=== PATIENT | male | born 1945 | race Caucasian/White ===

== ENCOUNTER → 2019-05-23 15:21 | Outpatient (CLI) | payer OTHER, SELFPAY ==
--- NOTE | ~2019-05-23 | XR_ITS ---
EXAMINATION: XR chest 2V EXAM DATE: 05/23/2019 15:30 INDICATION: Right lower posterior chest pain. TECHNIQUE: Frontal and lateral projections of the chest obtained and reviewed. Comparison is made to prior examination from 10/07/2013. FINDINGS: Bulging posterior cardiac contour, the left atrium. No confluent consolidation, pneumothor ax or pleural effusion suspected. Patient has diffuse idiopathic skeletal hyperostosis (DISH). There are cholecystectomy clips. IMPRESSION: Cardiomegaly. Reviewed, dictated and finalized at location B. AIR LAND OFFICER IMPRESSION: Cardiomegaly.
== END ==
PROVIDERS: Visit Provider Internal Medicine Gastroenterology
DX: R07.9 Chest pain, unspecified (principal); I51.7 Cardiomegaly
CPT/HCPCS: 71046

== ENCOUNTER 2020-04-10 14:08 | Outpatient (CLI) | payer MEDICARE, OTHER, SELFPAY ==
--- NOTE | ~2020-04-10 | MR_ITS ---
EXAMINATION: MR brain/brain stem wo/w con DATE: 04/10/2020 15:27 INDICATION: Headache. TECHNIQUE: Magnetic resonance imaging (MRI) of the brain and brainstem was performed without and with 19 mL MultiHance intravenous contrast. Sequences included sagittal and axial T1-weighted FSE, axial diffusion-weighted FS EPI, axial T2*-weighted GRE, axial T2-weighted FLAIR Propeller, and axial T2-we ighted Propeller. Postcontrast sequences included axial and coronal T1-weighted FSE. Apparent diffusi on coefficient (ADC) maps were created. COMPARISON: None. FINDINGS: There are scattered areas of nonspecific increased T2-weighted signal intensity in the cere bral white matter, which is within normal limits for the patient's age. There is no intracranial hemo rrhage, acute infarction, or abnormal intracranial mass lesion. The ventricles are normal in size. Th ere is mild mucosal thickening in the paranasal sinuses. There are likely changes of ocular lens repl acement surgeries. The mastoid air cells are normal. IMPRESSION: 1. Normal aging brain. Reviewed, dictated and finalized at location A. LOPMENTAL ELECTRONICS ASSEMBLER IMPRESSION: 1. Normal aging brain.
[2020-04-10 15:04] LABS: Estimated Glomerular Filt Rate > 60
== END 2020-04-10 14:09 | disposition home or self-care (01) ==
PROVIDERS: PCP Internal Medicine; Visit Provider Clinical Nurse Specialist
DX: R51.9 Headache, unspecified (principal)
CPT/HCPCS: 70553; A9577

== ENCOUNTER 2020-06-27 09:16 | Outpatient (CLI) | payer MEDICARE, SELFPAY ==
--- NOTE | ~2020-06-27 | US_ITS ---
EXAMINATION: US retroperitoneal duplex ltd DATE: 06/27/2020 10:02 INDICATION: hypertension TECHNIQUE: Multiple grayscale, color Doppler, and pulsed Doppler images of the kidneys and renal cedric lexus were obtained. COMPARISON: None. FINDINGS: There is normal renal contour and echogenicity bilaterally. The right kidney measures 10.9 x 5.0 x 5. 5 cm and the left 11.3 x 4.9 x 5.7 cm. There are no focal renal lesions identified. There is no hyd ronephrosis. The aorta peak systolic velocity is 140 cm/s. The right renal artery peak systolic ve locity is 73 cm/s in the proximal segment, 60 cm/s in the mid segment, and 75 cm/s in the distal segm ent. The left renal artery peak systolic velocity is 104 cm/s in the proximal segment, 78 cm/s in the mid segment, and 84 cm/s in the distal segment. IMPRESSION: 1. No Doppler evidence of renal artery stenosis. Reviewed, dictated and finalized at location A.
== END 2020-06-27 09:17 | disposition home or self-care (01) ==
PROVIDERS: PCP Internal Medicine; Visit Provider Internal Medicine
DX: I10 Essential (primary) hypertension (principal)
CPT/HCPCS: 93976

== ENCOUNTER 2020-07-12 09:42 | Outpatient (CLI) | payer MEDICARE, SELFPAY ==
--- NOTE | 2020-07-12 10:01 | ECHO_ITS ---
Patient Info Name: Francisco Rashid Age: 75 years : 1945 Gender: Male Ht: 69 in Wt: 220 lbs BSA: 2.24 m2 HR: 58 bpm BP: 179 / 97 mmHg Heart Rhythm: Sinus Rhythm Exam Date: 07/12/2020 10:20 AM Exam Location: [facility] Patient Status: Outpatient Admit Date: 07/12/2020 Staff Ordering Physician: Elan Harvey DO Claims Consultant: Anny Chris RDCS Attending Provider: Elan Harvey DO Exam Type: CA echo doppler color flow Study Info Indications I10 - Essential (primary) hypertension Complete two-dimensional, color flow and Doppler transthoracic echocardiogram is performed. Summary 1. Complete two-dimensional, color flow and Doppler transthoracic echocardiogram is performed. 2. Left ventricular chamber dimension is normal. 3. Left ventricular systolic function is normal, estimated at 60-65%. 4. The left ventricular diastolic function is normal. 5. E/e' 11 is mildly elevated. 6. Left atrial chamber dimension is mildly enlarged. 7. Right atrial chamber dimension is mildly enlarged. 8. Mild pulmonary hypertension, estimated pulmonary arterial systolic pressure is 44 mmHg. Left Ventricle E/e' 11 is mildly elevated. Left ventricular chamber dimension is normal. Left ventricular systolic function is normal, estimated at 60-65%. The left ventricular diastolic function is normal. Right Ventricle Right ventricular chamber dimension is normal. Right ventricular systolic function is normal. Left Atria Left atrial chamber dimension is mildly enlarged. Right Atria Right atrial chamber dimension is mildly enlarged. Aortic Valve The aortic valve is trileaflet. There is no aortic valve stenosis. There is no aortic valve regurgitation. Pulmonic Valve There is no pulmonic regurgitation. Mitral Valve There is no mitral valve stenosis. There is no mitral valve regurgitation. Tricuspid Valve There is no tricuspid valve regurgitation. Mild pulmonary hypertension, estimated pulmonary arterial systolic pressure is 44 mmHg. Pericardium/Pleural There is no pericardial effusion. Inferior Vena Cava Normal inferior vena cava with >50% collapse upon inspiration consistent with normal right atrial pressure, 5 mmHg. Aorta The aortic root size at the sinus of Valsalva is normal. Left Ventricular Outflow Tract Name Value Normal LVOT 2D LVOT Diameter 1.9 cm LVOT Doppler LVOT Peak Gradient 6 mmHg LVOT Mean Gradient 3 mmHg LVOT VTI 27 cm LVOT VTI/AV VTI Ratio 0.6 LVOT Stroke Volume 79 ml LVOT CO 3.8 l/min LVOT CI 1.7 l/min/m2 Pulmonic Valve Name Value Normal RVOT Doppler RVOT Peak Gradient 2 mmHg
== END 2020-07-12 09:43 | disposition home or self-care (01) ==
PROVIDERS: PCP Internal Medicine; Visit Provider Internal Medicine
DX: I10 Essential (primary) hypertension (principal); R94.31 Abnormal electrocardiogram [ECG] [EKG]
CPT/HCPCS: 93306

== ENCOUNTER → 2021-01-15 12:19 | Outpatient (CLI) | payer MEDICARE, SELFPAY ==
--- NOTE | ~2021-01-15 | US_ITS ---
US renal BI 01/15/2021 12:35 Procedure: Realtime transabdominal ultrasound of the kidneys and bladder. Indication: Arterial insufficiency. Hypertension. Comparison: 06/27/2020 Findings: Renal echotexture is normal bilaterally without hydronephrosis, contour deforming mass or r enal calculus. There are bilateral renal cysts measuring up to 1.5 cm on the right and 1 cm on the le ft. The right kidney measures 10.8 cm and left kidney measures 10.3 cm. Bladder within normal limits . Impression: 1: Bilateral renal cysts. Reviewed, dictated and finalized at location B. Impression: 1: Bilateral renal cysts.
== END ==
PROVIDERS: PCP Internal Medicine; Visit Provider Urology
DX: N52.01 Erectile dysfunction due to arterial insufficiency (principal); N28.1 Cyst of kidney, acquired
CPT/HCPCS: 76775

== ENCOUNTER 2021-02-20 01:17 | Emergency (ER) | payer MEDICARE, SELFPAY ==
[2021-02-20] VITALS (25 sets, daily range): BP systolic 137–157; BP diastolic 60–70; PULSE 43–77; RESP 15–20; TEMP 37.1; O2SAT 90–96
--- NOTE | ~2021-02-20 | CT_ITS ---
EXAMINATION: CT chest abdomen pelvis w con DATE: 02/20/2021 03:01 INDICATION: Chest pain and abdominal pain. TECHNIQUE: Computed tomography (CT) of the chest, abdomen, and pelvis was performed with 100 mL Omnip aque-350 intravenous contrast. Automated exposure control and iterative reconstruction technique were employed. The dose-length product was 1861.29 mGy-cm. COMPARISON: CT dated 01/31/2019 FINDINGS: CHEST CT: Mild atelectasis at the dependent and basilar lower lobes. No pneumonia, pulmonary edema, pleural eff usion or pneumothorax. Cardiomegaly. Atherosclerotic coronary artery calcification is. Aortic valve c alcification. Thoracic aorta is normal in caliber with no dissection. Calcified mediastinal lymph nod es consistent with old granulomatous disease. No pathologically enlarged thoracic lymphadenopathy. Se sammi left glenohumeral osteoarthritis with a few large loose osteochondral bodies. Heterotopic ossifi cation along the distal left supraspinatus tendon and left coracoclavicular ligament which are likely sequela of prior trauma. There are bridging osteophytes at multiple levels in the thoracic spine, co nsistent with diffuse idiopathic skeletal hyperostosis (DISH). ABDOMEN/PELVIS CT: Multiple splenic calcifications in the liver and spleen consistent with old granulomatous disease. Ch olecystectomy clips the gallbladder fossa. Pancreas, bilateral adrenal glands and left kidney are nor mal. 1.6 cm right renal cyst. There is moderate colonic diverticulosis with a sigmoid predominance. There is no adjacent inflammatory change to suggest diverticulitis. Small bowel and appendix are norm al. Bladder is normal. Prostatomegaly measuring 5.0 x 3.2 cm. No free intraperitoneal gas or fluid. N o pathologically enlarged abdominal or pelvic lymphadenopathy. There is calcified atherosclerosis of the aorta and many of the other arteries. This includes mild stenosis at the origin of the superior m esenteric artery and a severe stenosis at the right internal iliac artery. Moderate to severe lower l umbar facet osteoarthritis. IMPRESSION: 1. No acute intrathoracic, abdominal or pelvic process. 2. Cardiomegaly. 3. Diverticulosis. Reviewed, dictated and finalized at location A. ISES TECHNICIAN
--- NOTE | ~2021-02-20 | XR_ITS ---
EXAMINATION: XR chest 2V EXAM DATE: 02/20/2021 02:49 INDICATION: Chest pain radiating to neck. TECHNIQUE: Frontal and lateral projections of the chest obtained and reviewed. Comparison is made to prior examination from 05/23/2019. FINDINGS: There is cardiomegaly and pulmonary vascular congestion. No confluent consolidation, pneum othorax or pleural effusion suspected. There are cholecystectomy clips. There is moderate left should er primary osteoarthritis. Left shoulder rotator cuff calcific tendinosis. IMPRESSION: Cardiomegaly, pulmonary vascular congestion. Reviewed, dictated and finalized at location A. SITION MANAGER
--- NOTE | ~2021-02-20 | XR_ITS ---
EXAMINATION: XR abdomen/kub 1V EXAM DATE: 02/20/2021 02:49 INDICATION: Abdominal pain and bloating. TECHNIQUE: Frontal projection of the upper abdomen, frontal projection lower abdomen/pelvis for inter pretation. There is no prior study for comparison. FINDINGS: There is expected amount of colonic stool and gas. No small bowel dilation, nonobstructiv e bowel gas pattern. Calcifications in the pelvis are believed to be phleboliths. There is no orga nomegaly suspected. There are mild bony degenerative changes. There are cholecystectomy clips. IMPRESSION: Unremarkable abdomen x-ray exam. Reviewed, dictated and finalized at location A. T EDUCATION MANAGER
--- NOTE | 2021-02-20 01:21 | ECG_ITS ---
Measurements Intervals Bagley Rate: 51 P: 67 NV: 200 QRS: 20 QRSD: 101 T: 46 QT: 424 QTc: 392 Interpretive Statements SINUS BRADYCARDIA LOW QRS VOLTAGE IN PRECORDIAL LEADS INCOMPLETE RIGHT BUNDLE BRANCH BLOCK BORDERLINE R WAVE PROGRESSION, ANTERIOR LEADS BASELINE WANDER- III, AVR, AVF BORDERLINE ECG Electronically Signed On 02-20-2021 6:44:48 DOCUMENT PROCESSING SPECIALIST by Franco Norman D.O.
--- NOTE | 2021-02-20 01:21 | ED.CHESTPAIN ---
HPI - Chest Pain General Chief Complaint: Chest Pain Stated Complaint: CP Time Seen by Provider: 02/20/21 01:21 Source: patient and family Mode of arrival: ambulatory Limitations: no limitations History of Present Illness HPI narrative: Patient is a 75-year-old male with a history of hypertension, hyperlipidemia presenting for evaluation of upper abdominal pain, lower chest pain. Onset of pain was approximately 9:30 PM yesterday evening, patient reports aching sensation in his upper abdomen which travels to his upper chest. He denies radiation of the pain to his neck, jaw, shoulder, back or flanks. No ripping or tearing sensation to the pain. No associated shortness. Patient does report some abdominal distention and bloating as well as nausea, denies any episodes of emesis. Patient reports history of hernia repair with mesh at [facility] many years ago, denies other intra-abdominal surgeries. He denies any cough or shortness of breath. No pleuritic chest pain. Reports diarrhea this week. Denies history of constipation. Related Data Home Medications Medication Instructions Recorded Confirmed multivitamin 1 tablet PO DAILY 01/24/20 01/15/21 omega-3 fatty acids 1,000 mg 1,400 mg PO DAILY cap 01/24/20 01/15/21 capsule vit C 250 mg-vit E 90 mg-zinc 40 1 tablet PO DAILY cap 01/24/20 01/15/21 mg-copper 1 [id number] capsule sildenafil 50 mg tablet 50 mg PO DAILY PRN 04/03/20 01/15/21 Allergies Allergy/AdvReac Type Severity Reaction Status Date / Time ciprofloxacin Allergy Unknown Flu like Verified 02/20/21 01:27 symptoms metronidazole Allergy Unknown Flu like Verified 02/20/21 01:27 symptoms nitroglycerin AdvReac Intermediate Bradycardia Verified 02/20/21 01:27 Review of Systems Review of Systems: CONSTITUTIONAL: Denies fever, chills, or sweats. EYES: Denies visual changes, redness, or discharge. ENT: Denies rhinorrhea, congestion, sore throat, or otalgia. CARDIOVASCULAR: Reports lower chest pain without palpitations or edema RESPIRATORY: Denies cough or dyspnea. GASTROINTESTINAL: Reports abdominal pain, nausea without vomiting, reports diarrhea GENITOURINARY: Denies dysuria or hematuria. SKIN: Denies rash or itching. MUSCULOSKELETAL: Denies back pain, joint pain, or myalgia. NEUROLOGIC: Denies headache, numbness, or weakness. [facility] Past Medical History Medical History Bradycardia Dainelle endophthalmitis Cholecystectomy planned Elevated C-reactive protein (CRP) Heart murmur History of measles, mumps, or rubella Hyperlipidemia Hypertension Kidney disease Surgical History Surgical History H/O hernia repair Family History Family History Father Family history of transient ischemic attacks Mother Family history of transient ischemic attacks Social History Social History Smoking status: Never smoker Second hand tobacco smoke exposure: No Alcohol intake: current Exam Narrative: GENERAL: Awake, alert, conversant, uncomfortable appearing HEAD: Normocephalic, atraumatic. EYES: PERRLA and EOMI. ENT: Nares clear, no rhinorrhea or epistaxis. Mucous membranes moist. NECK: Supple. CHEST: No respiratory distress, breathing even and non labored, no chest wall tenderness HEART: Bradycardic rate, sinus rhythm ABDOMEN: Distention with tenderness throughout, guarding in the epigastrium, right upper quadrant, no rebound, nonrigid EXTREMITIES: Normal range of motion. No edema. SKIN: Warm, dry, no rash. NEURO:No focal deficits. Alert and oriented x3 Course Vital Signs Vital signs: Vital Signs Temperature 37.1 C 02/20/21 01:23 Pulse Rate 56 L 02/20/21 01:23 Respiratory Rate 16 02/20/21 01:23 Blood Pressure 148/70 H 02/20/21 01:23 Pulse Oximetry 96
[2021-02-20] MEDS: ASPIRIN 81 MG CHEWABLE TABLET 324 MG PO (01:34)
[2021-02-20 01:41] LABS: Basophils Percent Auto 0.2 % (0.2-1.2); Eosinophils Absolute Auto 0.2 K/mm3 (0-0.3); Hematocrit 43.2 % (42.0-52.0); Hemoglobin 15.7 g/dL (14.0-18.0); Immature Granulocyte Absolute 0.03 K/mm3 (0.00-0.031); Immature Granulocyte Percent A 0.3 % (0-0.5); Lymphocytes Percent Auto 40.3 % (18.3-44.2); Mean Corpuscular HGB Conc 36.3 g/dl (32-36); Mean Corpuscular Hemoglobin 35.5 pg (26-34); Mean Corpuscular Volume 97.7 fl (80-100); Mean Platelet Volume 8.6 fl (7.4-10.4); Monocytes Absolute Auto 0.6 K/mm3 (0.1-0.6); Neutrophils Absolute Auto 4.4 K/mm3 (1.3-6.7); Neutrophils Percent Auto 50.2 % (45.5-73.1); Platelet Count Result 160 k/mm3 (150-375); Red Blood Count 4.42 M/mm3 (4.6-6.20); Red Cell Distribution Width 12.2 % (11.5-14.5); White Blood Count 8.7 K/mm3 (4.5-10.0)
[2021-02-20 01:53] LABS: Alanine Aminotransferase 40 U/L (4-50); Albumin Level 4.2 g/dL (3.5-5.1); Alkaline Phosphatase 109 U/L (38-126); Anion Gap 7 mmol/L (8-16); Aspartate Amino Transferase 38 U/L (17-59); Bilirubin,Total 0.4 mg/dL (0.2-1.3); Blood Urea Nitrogen 16 mg/dL (9-20); Calcium 9.9 mg/dL (8.4-10.2); Carbon Dioxide 30 mmol/L (22-30); Chloride 101 mmol/L (98-107); Estimated CRCL calculation 95 ml/min; Estimated Glomerular Filt Rate > 60; Glucose 110 mg/dL (65-110); Lipase 115 U/L (23-300); Potassium 3.6 mmol/L (3.4-5.0); Sodium 138 mmol/L (137-145)
[2021-02-20 02:00] LABS: INR 0.9; Prothrombin Time 12.1 Seconds (11.1-14.7)
[2021-02-20 02:01] LABS: Partial Thromboplastin Time 27.6 SECONDS (22.3-36.8)
[2021-02-20 02:04] LABS: Troponin I < 0.012 ng/mL (0.000-0.034)
[2021-02-20] MEDS: SODIUM CHLORIDE 0.9% IV 1,000 ML 999 ML IV CONT (02:23)
[2021-02-20] MEDS: ONDANSETRON INJ 4 MG/2 ML VIAL IV PUSH (02:24)
[2021-02-20] MEDS: MORPHINE SULFATE (*CRX) 4 MG/ML INJ IV PUSH (02:26)
[2021-02-20] MEDS: DICYCLOMINE HCL INJ 20 MG/2 ML VIAL IM (02:27)
[2021-02-20 05:41] LABS: Troponin I < 0.012 ng/mL (0.000-0.034)
== END 2021-02-20 06:15 | disposition home or self-care (01) ==
PROVIDERS: Emergency Provider Emergency Medicine; PCP Internal Medicine
DX: R07.89 Other chest pain (principal); R10.10 Upper abdominal pain, unspecified; E78.5 Hyperlipidemia, unspecified; I10 Essential (primary) hypertension; N28.9 Disorder of kidney and ureter, unspecified; R00.1 Bradycardia, unspecified; R94.31 Abnormal electrocardiogram [ECG] [EKG]; I45.10 Unspecified right bundle-branch block; I51.7 Cardiomegaly; K57.90 Diverticulosis of intestine, part unspecified, without perforation or abscess without bleeding
CPT/HCPCS: 36415; 71046; 71260; 74018; 74177; 80053; 83690; 84484; 85025; 85610; 85730; 93005; 96361; 96372; 96374; 96375; 99284; A9270; J0131; J0500; J2270; J2405; J7030; Q9967

== ENCOUNTER → 2021-07-11 10:53 | Outpatient (CLI) | payer MEDICARE, SELFPAY ==
--- NOTE | ~2021-07-11 | CT_ITS ---
EXAMINATION: CT abdomen pelvis wo/w con DATE: 07/11/2021 11:55 INDICATION: Microscopic hematuria TECHNIQUE: Computed tomography (CT) of the abdomen and pelvis was performed without intravenous contr ast. CT of the abdomen and pelvis was then performed with a total of 130 mL Omnipaque 350 intravenous contrast using a double-bolus technique for simultaneous opacification of the renal parenchyma and r enal collecting system. The dose-length product (DLP) was 2163.95 mGy-cm. Automated exposure control and iterative reconstruction technique were employed. COMPARISON: 02/20/2021 FINDINGS: Minimal dependent atelectasis is present in the lung bases. The heart size is normal. There is a small sliding hiatal hernia. Prior Punctate calcifications in otherwise normal appearing liver and spleen likely represent healed granulomatous disease. The gallbladder is surgically absent. The p ancreas and adrenal glands are unremarkable. Cysts of the right kidney measure up to 2 cm. No stones are identified in the kidneys, ureters, or bladder. There is no hydronephrosis or hydroureter. No wes picious renal or urothelial lesion is identified. No pathologically enlarged abdominal or pelvic lymp h nodes are identified. There is calcified atherosclerosis of the aorta and many of the other arterie s. There is no free intraperitoneal gas or evidence of bowel obstruction. Colonic diverticulosis is p resent without evidence of diverticulitis. The appendix is normal. There is mild lumbar spondylosis. IMPRESSION: 1. No CT correlate for the patient's symptoms. Reviewed, dictated and finalized at location A.
--- NOTE | ~2021-07-11 | XR_ITS ---
EXAMINATION: XR abdomen/kub 1V INDICATION: Microscopic hematuria TECHNIQUE: Supine views of the abdomen were obtained on 2 radiographs. COMPARISON: 02/20/2021 FINDINGS: Cholecystectomy clips are noted. No urolithiasis is identified. Punctate left upper quadran t calcifications are consistent with granulomatous disease of the spleen. IMPRESSION: 1. No radiographic correlate for the patient's symptoms. Reviewed, dictated and finalized at location A.
[2021-07-11 11:09] LABS: Estimated Glomerular Filt Rate > 60
== END ==
PROVIDERS: PCP Internal Medicine; Visit Provider Nurse Practitioner Adult Health
DX: R31.29 Other microscopic hematuria (principal)
CPT/HCPCS: 74018; 74178; Q9967

== ENCOUNTER 2021-09-12 01:07 | Day surgery (SDC) | payer MEDICARE, SELFPAY ==
[2021-08-21 13:18] VITALS: BMI 32.5
--- NOTE | 2021-09-11 13:11 | PM.HPGS ---
History of Present Illness History of Present Illness Consent: Risks, benefits, and alternatives have been discussed and questions answered. Patient agrees to proceed with procedure. Chief complaint: positive cologuard Narrative: Francisco Rashid Jr. is a 76 year old male referred for colon cancer screening. He recently performed Cologuard test was positive. Review of Systems Review of Systems: All systems reviewed & are unremarkable except as noted in HPI and below PMFSH Past Medical History Medical History Bradycardia Danielle endophthalmitis Cholecystectomy planned Elevated C-reactive protein (CRP) Heart murmur History of measles, mumps, or rubella Hyperlipidemia Hypertension Kidney disease Surgical History Surgical History H/O hernia repair Family History Family History Father Family history of transient ischemic attacks Mother Family history of transient ischemic attacks Social History Social History Smoking status: Never smoker Second hand tobacco smoke exposure: No Alcohol intake: current Drinks per week: 21 Substance use type: does not use Living arrangements: with family Spiritual care concerns: No Meds Home Medications and Allergies Home Medications Medication Instructions Recorded Confirmed Type multivitamin 1 tablet PO DAILY 01/24/20 09/04/21 History omega-3 fatty acids 1,000 mg 1,400 mg PO DAILY 01/24/20 09/04/21 History capsule (Fish Oil Concentrate) vit C 250 mg-vit E 90 mg-zinc 40 1 tablet PO DAILY 01/24/20 09/04/21 History mg-copper 1 [id number] capsule (PreserVision AREDS-2) sildenafil 50 mg tablet 50 mg PO DAILY PRN Erectile 04/03/20 09/04/21 History Dysfunction losartan 100 1 tablet PO DAILY #90 tabs 06/13/21 09/04/21 Rx mg-hydrochlorothiazide 25 mg tablet amlodipine 10 mg tablet 10 mg PO DAILY #90 tabs 08/19/21 09/04/21 Rx cyclobenzaprine 10 mg tablet 10 mg PO TID PRN muscle spasm #20 09/04/21 09/04/21 Rx tabs Allergies Allergy/AdvReac Type Severity Reaction Status Date / Time ciprofloxacin Allergy Unknown Flu like Verified 09/04/21 11:15 symptoms metronidazole Allergy Unknown Flu like Verified 09/04/21 11:15 symptoms nitroglycerin AdvReac Intermediate Bradycardia Verified 09/04/21 11:15 Exam Resp: Auscultation: clear to auscultation bilaterally Cardio: Rate: regular rate Rhythm: regular rhythm GI: GI Palp: Yes Soft to palpation and No Tenderness to palpation present (GI) Assessment and Plan Assessment and plan (1) Screening for colon cancer: Code(s): Z12.11 - Encounter for screening for malignant neoplasm of colon Status: Acute Assessment and Plan: Colonoscopy with possible biopsy or polypectomy or cautery or injection of substances.
--- NOTE | 2021-09-11 15:31 | P.PNAN_ITS ---
Anes - Initial Pre Proc Eval Procedure: Operation Date: 09/12/21 10:15 Proposed Procedures p Screening Colonoscopy - Adrian Sheldon MD Date/Time: 09/11/21 15:31 Surgeon: Adrian Sheldon MD Pre Op Diagnosis: positive cologuard Patient Data Age: 76 Gender: M Height: 1.75 m Weight: 100 kg Allergies Allergy/AdvReac Type Severity Reaction Status Date / Time ciprofloxacin Allergy Unknown Flu like Verified 09/04/21 11:15 symptoms metronidazole Allergy Unknown Flu like Verified 09/04/21 11:15 symptoms nitroglycerin AdvReac Intermediate Bradycardia Verified 09/04/21 11:15 Home Medications Medication Instructions Recorded Confirmed Type multivitamin 1 tablet PO DAILY 01/24/20 09/04/21 History omega-3 fatty acids 1,000 mg 1,400 mg PO DAILY 01/24/20 09/04/21 History capsule (Fish Oil Concentrate) vit C 250 mg-vit E 90 mg-zinc 40 1 tablet PO DAILY 01/24/20 09/04/21 History mg-copper 1 [id number] capsule (PreserVision AREDS-2) sildenafil 50 mg tablet 50 mg PO DAILY PRN Erectile 04/03/20 09/04/21 History Dysfunction losartan 100 1 tablet PO DAILY #90 tabs 06/13/21 09/04/21 Rx mg-hydrochlorothiazide 25 mg tablet amlodipine 10 mg tablet 10 mg PO DAILY #90 tabs 08/19/21 09/04/21 Rx cyclobenzaprine 10 mg tablet 10 mg PO TID PRN muscle spasm #20 09/04/21 09/04/21 Rx tabs Patient hx anesthesia problems: none Family hx anesthesia problems: none Results Review: All pre-operative results and documents have been reviewed as part of the pre- operative evaluation. [facility] Past Medical History Medical History Bradycardia Danielle endophthalmitis Cholecystectomy planned Elevated C-reactive protein (CRP) Heart murmur History of measles, mumps, or rubella Hyperlipidemia Hypertension Kidney disease Surgical History Surgical History H/O hernia repair Family History Family History Father Family history of transient ischemic attacks Mother Family history of transient ischemic attacks Social History Social History Smoking status: Never smoker Second hand tobacco smoke exposure: No Alcohol intake: current Drinks per week: 21 Substance use type: does not use Living arrangements: with family Spiritual care concerns: No Anes - Eval Final PreProcedure Day of Procedure 09/11/21 15:31 Patient weight: obese Heart: regular rate and rhythm Lungs: clear to auscultation Airway: Mallampati scale class II Neurological: alert and oriented Last oral intake: >/= 8 hours ASA classification: III Emergent: no Anesthetic plan: proceed Anesthesia type and monitoring: general GIVS and standard monitoring Results Review: All pre-operative results and documents have been reviewed as part of the pre- operative evaluation. Informed Consent: The patient's anesthetic plan and its attendant risks and benefits were discussed with the patient/family/POA. Questions were solicited and answers provided to the satisfaction of the patient/family/POA.
[2021-09-12 08:54] VITALS: BMI 33.5
[2021-09-12 08:56] VITALS: BP 157/72; PULSE 62; RESP 20; TEMP 36.4; O2SAT 98
[2021-09-12] MEDS: LACTATED RINGERS 1,000 ML 150 ML IV CONT (09:02)
[2021-09-12 09:50] VITALS: BP 129/78; PULSE 63; RESP 25; O2SAT 97
[2021-09-12 10:00] VITALS: BP 127/71; PULSE 59; RESP 23; O2SAT 97
[2021-09-12 10:10] VITALS: BP 134/75; PULSE 54; RESP 19; O2SAT 99
== END 2021-09-12 10:20 | disposition home or self-care (01) ==
PROVIDERS: PCP Internal Medicine; Visit Provider Internal Medicine Gastroenterology
PROC: 0DJD8ZZ Inspection of Lower Intestinal Tract, Via Natural or Artificial Opening Endoscopic (ICD-10-PCS; CPT 45378; principal; 2021-09-12 10:15)
DX: Z12.11 Encounter for screening for malignant neoplasm of colon (principal); K57.30 Diverticulosis of large intestine without perforation or abscess without bleeding; R19.5 Other fecal abnormalities; I10 Essential (primary) hypertension; E78.5 Hyperlipidemia, unspecified; E66.9 Obesity, unspecified; Z68.33 Body mass index [BMI] 33.0-33.9, adult
CPT/HCPCS: G0121; J2704; J7120

== ENCOUNTER → 2022-04-29 11:32 | Outpatient (CLI) | payer MEDICARE, SELFPAY ==
--- NOTE | ~2022-04-29 | XR_ITS ---
EXAMINATION: XR knee LT 3V DATE: 04/29/2022 11:43 INDICATION: Left knee pain TECHNIQUE: Three views of the left knee were obtained. COMPARISON: None. FINDINGS: Alignment is normal. No fracture or osteochondral lesion. There is mild tricompartmental os teoarthritis characterized by tiny marginal osteophytes. No joint effusion/synovitis. Calcified athe rosclerosis is noted. IMPRESSION: 1. Mild osteoarthritis. Reviewed, dictated and finalized at location L. UP AND LAY OUT INSPECTOR IMPRESSION: 1. Mild osteoarthritis.
== END ==
PROVIDERS: PCP Internal Medicine; Visit Provider Clinical Nurse Specialist
DX: M17.12 Unilateral primary osteoarthritis, left knee (principal)
CPT/HCPCS: 73562

== ENCOUNTER → 2022-06-27 11:17 | Outpatient (CLI) | payer MEDICARE, SELFPAY ==
--- NOTE | ~2022-06-27 | MR_ITS ---
MRI of the left knee Clinical history: Pain Technique: Coronal proton density and proton density-weighted images, sagittal proton-density and T2 fat-sat images, and axial proton-density fat-saturated images were acquired. Findings: Anterior and posterior cruciate ligaments are intact. Medial collateral ligament and the la teral collateral ligament, as are intact. Popliteus tendon is intact. There is probable radial tear at the posterior root of the medial meniscus. No lateral meniscal tear seen. There is moderate chondral thinning towards the medial joint line. There is minimal chondral th inning in the lateral and patellofemoral compartment. Bone marrow signals are unremarkable. Extensor mechanism is intact. Small joint effusion present, with minimal Galeano's cyst. Impression: Radial tear at the posterior root of the medial meniscus. Mild degenerative change, as above. Small joint effusion with minimal Galeano's cyst. Reviewed, dictated and finalized at [facility]. Impression: Radial tear at the posterior root of the medial meniscus. Mild degenerative change, as above. Small joint effusion with minimal Galeano's cyst.
== END ==
PROVIDERS: PCP Internal Medicine; Visit Provider Nurse Practitioner
DX: M25.462 Effusion, left knee (principal); S83.242A Other tear of medial meniscus, current injury, left knee, initial encounter; X58.XXXA Exposure to other specified factors, initial encounter
CPT/HCPCS: 73721

== ENCOUNTER → 2022-08-19 12:11 | Outpatient (CLI) | payer MEDICARE, SELFPAY ==
--- NOTE | ~2022-08-19 | CT_ITS ---
EXAMINATION: CT abdomen pelvis w con DATE: 08/19/2022 12:39 INDICATION: Left lower quadrant abdominal pain. Bloating. TECHNIQUE: Computed tomography (CT) of the abdomen and pelvis was performed with 100 mL Omnipaque 350 intravenous contrast. Automated exposure control and iterative reconstruction technique were employe d. The dose-length product was 1216.27 mGy-cm. COMPARISON: CT abdomen and pelvis 07/11/2021 FINDINGS: The visualized portions of the lung bases demonstrate mild atelectasis. No pleural effusion . The heart size is normal. No pericardial effusion. There are coronary artery calcifications. The li angy demonstrates steatosis in the gallbladder fossa. Calcifications in the liver and spleen are consi stent with old granulomatous disease. There are low-attenuation lesions in the spleen measuring up to 9 mm, likely granulomatous disease. The pancreas and adrenal glands are normal. There are cysts in t he kidneys measuring up to 2.1 cm on the right. There is diverticulosis of the colon without evidence of diverticulitis. There are no dilated loops of bowel. The appendix is normal. There are no patholo gically enlarged lymph nodes. There is no free intraperitoneal fluid. There is calcified atherosclero sis of the aorta and many of the other arteries. There is mild lumbar spondylosis. There are bridging endplate osteophytes at multiple levels in the thoracic spine, consistent with diffuse idiopathic sk eletal hyperostosis (DISH). IMPRESSION: 1. No etiology for the patient's symptoms. Reviewed, dictated and finalized at location A.
[2022-08-19 12:27] LABS: Estimated Glomerular Filt Rate > 60
== END ==
PROVIDERS: PCP Internal Medicine; Visit Provider Nurse Practitioner
DX: R10.32 Left lower quadrant pain (principal)
CPT/HCPCS: 74177; Q9967

== ENCOUNTER 2023-01-22 10:18 | Emergency (ER) | payer MEDICARE, SELFPAY ==
--- NOTE | 2023-01-22 10:21 | ED.URI ---
HPI - URI/Sore Throat General Chief Complaint: Upper Respiratory Infection Stated Complaint: cough,chest rattling Time Seen by Provider: 01/22/23 10:21 Source: patient Mode of arrival: ambulatory Limitations: no limitations History of Present Illness HPI Narrative: Patient is a 77-year-old male who presents 3 days cough and congestion. At home COVID test was negative. Patient reports he is having coughing fits at night. Denies any fever, chills, nausea, vomiting, diarrhea, ear pain, sore throat. Patient has been using Mucinex. Denies history of COPD, asthma, bronchitis, pneumonia. Related Data Home Medications Medication Instructions Recorded Confirmed multivitamin 1 tablet PO DAILY 01/24/20 01/22/23 omega-3 fatty acids 1,000 mg 1,400 mg PO DAILY 01/24/20 01/22/23 capsule (Fish Oil Concentrate) vit C 250 mg-vit E 90 mg-zinc 40 1 tablet PO DAILY 01/24/20 01/22/23 mg-copper 1 [id number] capsule (PreserVision AREDS-2) sildenafil 50 mg tablet 50 mg PO DAILY PRN Erectile 12/10/21 01/22/23 Dysfunction triamcinolone acetonide 0.1 % 1 applic topical DAILY 08/19/22 12/22/22 lotion Allergies Allergy/AdvReac Type Severity Reaction Status Date / Time ciprofloxacin Allergy Unknown Flu like Verified 01/22/23 10:29 symptoms metronidazole Allergy Unknown Flu like Verified 01/22/23 10:29 symptoms nitroglycerin AdvReac Intermediate Bradycardia Verified 01/22/23 10:29 Review of Systems Review of Systems: All systems reviewed & are unremarkable except as noted in HPI and below Constitutional: Constitutional: Denies body ache(s), Denies chills, Denies fatigue, Denies fever(s), Denies headache(s), Denies malaise and Denies weakness Eyes: Eyes: Denies blurry vision, Denies itchy eyes and Denies loss of vision ENT: Denies otalgia, Denies headache(s), Reports nasal congestion, Denies sinus pain and Denies sore throat Cardiovascular: Cardiovascular: Denies chest pain, Denies irregular heart rhythm and Denies dyspnea Respiratory: Respiratory: Reports cough and Denies dyspnea Gastrointestinal: Gastrointestinal: Denies abdominal pain, Denies diarrhea, Denies nausea and Denies vomiting Musculoskeletal: Musculoskeletal: Denies back pain, Denies myalgias and Denies arthralgias Integumentary/Breasts: Skin/Breast: Denies pruritus and Denies rash Neurologic: Denies headache(s), Denies loss of vision and Denies weakness Psychiatric: Psychiatric: Reports no additional psychiatric complaints Endocrine: Endocrine: Denies fatigue Allergic/Immunologic: Allergic/Immunologic: Denies itchy eyes PMFSH Past Medical History Medical History Bradycardia Danielle endophthalmitis Cholecystectomy planned Elevated C-reactive protein (CRP) Heart murmur History of measles, mumps, or rubella Hyperlipidemia Hypertension Surgical History Surgical History H/O hernia repair History of cholecystectomy Family History Family History Father Family history of transient ischemic attacks Heart disease Cerebrovascular accident Mother Family history of transient ischemic attacks Hypertension Cerebrovascular accident Son Celiac disease Grandparent Cancer Social History Social History Smoking status: Never smoker Second hand tobacco smoke exposure: No Alcohol intake: current Drinks per week: 21 Substance use type: does not use Lack of Transportation: No Lack of Food: Never True Current Housing: I Have Housing Concerned About Future Housing: No Difficulty Paying Gas/Electric Bills: No Difficulty Paying for Meds: No Currently Unemployed: No Education: Master's Degree or Higher Difficulty w/ Childcare or Family Care: No Living arrangements: with family Occupation/
[2023-01-22 10:37] VITALS: BP 164/83; PULSE 68; RESP 16; TEMP 36.9; O2SAT 97
== END 2023-01-22 11:25 | disposition home or self-care (01) ==
PROVIDERS: Emergency Provider Nurse Practitioner Family; PCP Internal Medicine
DX: J06.9 Acute upper respiratory infection, unspecified (principal); R01.1 Cardiac murmur, unspecified; E78.5 Hyperlipidemia, unspecified; I10 Essential (primary) hypertension
CPT/HCPCS: 87804; 99213; G0463

== ENCOUNTER → 2023-01-23 10:55 | Outpatient (CLI) | payer MEDICARE, SELFPAY ==
--- NOTE | ~2023-01-23 | XR_ITS ---
XR chest 2V 01/23/2023 11:06 Indication: Cough Procedure: 2 view chest Comparison: 02/20/2021 Findings: Cardiomegaly. No focal air space disease, pulmonary edema, pleural effusion or suspected pn eumothorax. No acute osseous abnormality. Impression: 1: No acute cardiopulmonary disease. Reviewed, dictated and finalized at location B. Impression: 1: No acute cardiopulmonary disease.
== END ==
PROVIDERS: PCP Nurse Practitioner; Visit Provider Nurse Practitioner
DX: R05.9 Cough, unspecified (principal)
CPT/HCPCS: 71046

== ENCOUNTER 2023-06-08 12:39 | Emergency (ER) | payer MEDICARE, OTHER, SELFPAY ==
--- NOTE | 2023-06-08 12:46 | ED.URI ---
HPI - URI/Sore Throat General Chief Complaint: Upper Respiratory Infection Stated Complaint: Cough,Fatigue,Trouble Breathing Time Seen by Provider: 06/08/23 12:44 Source: patient Mode of arrival: ambulatory Limitations: no limitations History of Present Illness HPI Narrative: Francisco is a 78-year-old male patient presenting to the clinic today with complaints of cough, fatigue, difficulty breathing times 2-3 days. Reports he just got back from [place]. Denies any fever, chills, body aches. Cough is nonproductive and keeping him up at night. Took at home COVID test on Thursday and it was negative at that time. Symptoms started Thursday night Related Data Home Medications Medication Instructions Recorded Confirmed multivitamin 1 tablet PO DAILY 01/24/20 06/08/23 omega-3 fatty acids 1,000 mg 1,400 mg PO DAILY 01/24/20 06/08/23 capsule (Fish Oil Concentrate) sildenafil 50 mg tablet 50 mg PO DAILY PRN Erectile 12/10/21 06/08/23 Dysfunction Allergies Allergy/AdvReac Type Severity Reaction Status Date / Time ciprofloxacin Allergy Unknown Flu like Verified 01/22/23 10:29 symptoms metronidazole Allergy Unknown Flu like Verified 01/22/23 10:29 symptoms nitroglycerin AdvReac Intermediate Bradycardia Verified 01/22/23 10:29 Review of Systems Review of Systems: Pertinent positives per HPI. Patient denies any fever, chills, rash, headache, visual changes, dizziness, runny nose, sore throat,chest pain, palpitations, nausea, vomiting, diarrhea, constipation, abdominal pain, or any urinary issues. PMFSH Past Medical History Medical History Bradycardia Danielle endophthalmitis Cholecystectomy planned Elevated C-reactive protein (CRP) Heart murmur History of measles, mumps, or rubella Hyperlipidemia Hypertension Surgical History Surgical History H/O hernia repair History of cholecystectomy Family History Family History Father Family history of transient ischemic attacks Heart disease Cerebrovascular accident Mother Family history of transient ischemic attacks Hypertension Cerebrovascular accident Son Celiac disease Grandparent Cancer Social History Social History (Reviewed 03/11/24 @ 12:47 by SONDRA Quinteros Smoking status: Never smoker Second hand tobacco smoke exposure: No Alcohol intake: current Drinks per week: 21 Substance use type: does not use Lack of Transportation: No Lack of Food: Never True Current Housing: I Have Housing Concerned About Future Housing: No Difficulty Paying Gas/Electric Bills: No Difficulty Paying for Meds: No Currently Unemployed: No Education: Master's Degree or Higher Difficulty w/ Childcare or Family Care: No Living arrangements: with family Occupation/Education: retired Spiritual care concerns: No Comments At the time of my signature, I reviewed and agree with the nursing past medical, surgical, social, and family history. There is no relevant family history pertinent to the patient complaint. Exam Narrative: General: Well-developed, well nourished, in no apparent distress Head: Normocephalic, atraumatic Eyes: Pupils equally round and reactive to light bilaterally, EOM intact, sclera and conjunctive clear, no discharge, lids normal Ears: TMs intact and clear, ear canals clear, no drainage, grossly hearing normal. Nose: Nares patent, clear discharge, no inflammation, no sinus tenderness. Mouth: Oropharynx without lesions or masses, good dentition, MMM. Neck: Supple, trachea midline, no enlargement of anterior or posterior cervical nodes, no thyroid masses or goiter palpable. Cardio: Regular rate and rhythm, s1 and s2 normal, no murmur appreciated. Resp: Clear to auscultation bilaterally anteriorly and posteriorly, no rhonc
[2023-06-08 12:47] VITALS: BP 172/74; PULSE 61; RESP 16; TEMP 36.7; O2SAT 97
== END 2023-06-08 13:38 | disposition home or self-care (01) ==
PROVIDERS: Emergency Provider Nurse Practitioner Family; PCP Nurse Practitioner
DX: J06.9 Acute upper respiratory infection, unspecified (principal); Z20.822 Contact with and (suspected) exposure to COVID-19; R01.1 Cardiac murmur, unspecified; E78.5 Hyperlipidemia, unspecified; I10 Essential (primary) hypertension
CPT/HCPCS: 87426; 99213; G0463

== ENCOUNTER 2023-10-19 13:07 | Outpatient (CLI) | payer MEDICARE, OTHER, SELFPAY ==
--- NOTE | ~2023-10-19 | XR_ITS ---
XR abdomen/kub 1V 10/19/2023 13:27 INDICATION: Bloating with gas TECHNIQUE: KUB COMPARISON: 07/11/2021 FINDINGS: Bowel gas pattern is normal. There is no evidence of free air, mass, organomegaly, ascites or obstruction. No abnormal calculi are seen. There are pelvic phleboliths. The bones appear intact . Moderate lumbar spondylosis. IMPRESSION: 1: No acute abdominal abnormality identified. Reviewed, dictated and finalized at location B.
== END 2023-10-19 13:08 ==
PROVIDERS: PCP Internal Medicine; Visit Provider Nurse Practitioner
DX: R14.0 Abdominal distension (gaseous) (principal); K59.00 Constipation, unspecified
CPT/HCPCS: 74018

== ENCOUNTER 2023-10-28 14:30 | Outpatient (CLI) | payer MEDICARE, OTHER, SELFPAY ==
--- NOTE | ~2023-10-28 | CT_ITS ---
EXAMINATION: CT abdomen pelvis w con DATE: 10/28/2023 14:58 INDICATION: Gas, bloating and right lower abdominal discomfort TECHNIQUE: Computed tomography (CT) of the abdomen and pelvis was performed with 100 mL Omnipaque-350 intravenous contrast. Automated exposure control and iterative reconstruction technique were employe d. The dose-length product was 1374.65 mGy-cm. COMPARISON: 08/19/2022 FINDINGS: Mild discoid atelectasis along the left major fissure. Heart size is normal. Aortic valve calcificati on and atherosclerotic coronary artery calcifications. No pericardial effusion. Small sliding-type hi atal hernia. Cholecystectomy clips the gallbladder fossa. Stable appearance of focal hepatic steatosi s along the gallbladder fossa. Couple unchanged small low-attenuation lesions in the spleen measuring up to 9 mm and which along with numerous scattered splenic calcifications are likely sequela of old granulomatous disease. Pancreas, bilateral adrenal glands and left kidney are normal. 1.5 cm right re nal cyst. Normal appendix. There is moderate scattered colonic diverticulosis with a sigmoid predomin ance but without adjacent from . Change to suggest diverticular colitis. Bladder is normal. Mild pros tatomegaly measuring 4.5 x 3.3 cm. No free intraperitoneal gas or fluid. No pathologically enlarged a bdominal aorta lymphadenopathy. Mild lumbar and lower thoracic spondylosis with bridging osteophytes at multiple levels in the lower thoracic spine consistent with diffuse idiopathic skeletal hyperostos is (DISH). IMPRESSION: 1. No acute intra-abdominal/pelvic process. Specifically the appendix is normal. Reviewed, dictated and finalized at location A. IMPRESSION: 1. No acute intra-abdominal/pelvic process. Specifically the appendix is normal .
[2023-10-28 14:50] LABS: Estimated Glomerular Filt Rate > 60
== END 2023-10-28 14:31 | disposition home or self-care (01) ==
PROVIDERS: PCP Internal Medicine; Visit Provider Nurse Practitioner
DX: R10.32 Left lower quadrant pain (principal); K92.89 Other specified diseases of the digestive system
CPT/HCPCS: 74177; Q9967

== ENCOUNTER 2024-05-19 14:35 | Outpatient (CLI) | payer MEDICARE, OTHER, SELFPAY ==
--- NOTE | ~2024-05-19 | CT_ITS ---
EXAMINATION: CT abdomen pelvis wo/w con DATE: 05/19/2024 15:32 INDICATION: Benign prostatic hypertrophy with lower urinary tract symptoms. TECHNIQUE: Computed tomography (CT) of the abdomen and pelvis was performed without and with intraven ous contrast using a total of 130 mL Omnipaque-350 intravenous contrast with a double-bolus technique for simultaneous opacification of the renal parenchyma and renal collecting system. Automated exposu re control and iterative reconstruction technique were employed. The dose-length product was 2218.26 mGy-cm. COMPARISON: CT abdomen and pelvis 10/28/2023 FINDINGS: The visualized portions of lung bases demonstrate mild atelectasis. No pleural effusion. The heart si ze is normal. There are coronary artery calcifications. No pericardial effusion. There is diffuse hep atic steatosis. Calcifications in the liver and spleen are consistent with old granulomatous disease. There is a chronic 7 mm hypodense mass in the spleen, likely granulomatous disease or a cyst. There are changes of cholecystectomy. The pancreas, adrenal glands, and right kidney are normal. There is a 13 mm cyst in right kidney. There is no urolithiasis. The ureters are well opacified and are normal. The prostate is mildly enlarged. There is diverticulosis of the colon without evidence of diverticul itis. The appendix is normal. There are no dilated loops of bowel. There are no pathologically enlarg ed lymph nodes. There is no free intraperitoneal fluid. There is moderate lumbar spondylosis. There a re bridging endplate osteophytes at multiple levels in the thoracic spine, consistent with diffuse id iopathic skeletal hyperostosis (DISH). IMPRESSION: 1. Diffuse hepatic steatosis. Reviewed, dictated and finalized at location A. SHAMPOOER
[2024-05-19 15:07] LABS: Estimated Glomerular Filt Rate > 60
== END 2024-05-19 14:36 | disposition home or self-care (01) ==
LOC: MICIMG 14:37
PROVIDERS: PCP Internal Medicine; Visit Provider Urology
DX: N40.1 Benign prostatic hyperplasia with lower urinary tract symptoms (principal)
CPT/HCPCS: 74178; Q9967

== ENCOUNTER 2024-12-06 08:04 | Outpatient (CLI) | payer MEDICARE, OTHER, SELFPAY ==
--- NOTE | ~2024-12-06 | NM_ITS ---
EXAM: NM gastric emptying study DATE: 12/06/2024 12:45 INDICATION: Other specified disease of digestive system TECHNIQUE: A gastric emptying study was performed using the methodology of Chelita QUINTANA, et al. J Nucl Med 2007; 48:568-572. The patient was given a meal consisting of 2 scrambled eggs labeled with 1.017 mCi Tc-99m sulfur colloid, 2 slices of toast, two packages of jam, and approximately 120 mL of water. Simultaneous anterior and posterior 1-min images of the abdomen were obtained with the patient supine at multiple time points over a total period of 4 hours. The geometric mean of anterior and posterior views was determined, and the percentage retention was calculated for each time point. COMPARISON: None. FINDINGS: Gastric retention of the radiotracer-labeled meal was 42%, 22%, and 2% at the 1- hour, 2-hour, and 4-hour time points, respectively. With this technique, apparent rapid gastric emptying is suggested by <30% gastric retention at 1 hour. Delayed gastric emptying is defined by gastric retention of >90% at 1 hour, >60% retention at 2 hours, or >10% retention at 4 hours. IMPRESSION: 1. Normal gastric emptying. Reviewed, dictated and finalized at location A. IMPRESSION: 1. Normal gastric emptying.
--- OUTSIDE RECORDS SUMMARY | 2024-12-06 08:29 | XMS_ITS | Encounter Summary ---
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 Name Role Phone Unavailable Primary Care Provider Unavailabl e Encounter Details Date Type Department Care Team (Late st Contact Info) Description 07/03/2021 Lab Requisition [facility] Lab [address] [place] [address] Rubén Miranda MD [address] [place] [address] Social History Tobacco Use Types Packs/Day Years Used Date Smoking Tobacco: Never Alcohol Use Standard Drinks/Week Comments Yes 11.7 (1 standard drink = 0.6 oz pure alcohol) Sex and Gender Information Value Date Recorded Sex Assigned at Not on file Legal Sex Male 10:23 AM CDT Gender Identity Not on file Sexual Orientation Not on file documented as of this encounter Plan of Treatment Not on file documented as of this encounter Procedures Procedure Name Priority Date/Time Associated Diagnosis Comments DERMATOPATHOLOGY Routine 07/02/2021 12:0 0 AM CDT documented in this encounter Results * DERMATOPATHOLOGY (07/02/2021 12:00 AM CDT) Case Report Dermatopathology Report Case: [id number] Authorizing Provider: Rubén Miranda MD Collected: 07/02/2021 12:00 AM Ordering Location: [facility] Received: 07/03/2021 12:51 PM Pathologist: Lorin Muse MD Specimen: Skin, left medial end of clavicle 2:57 PM CDT DERMATOPATHOLOGY LABORATORY Final Diagnosis Specimen A. SKIN, left medial end of clavicle: LICHEN PLANUS-LIKE KERATOSIS (BENIGN LICHENOID KERATOSIS) (L82.1) 2 2:57 PM CDT DERMATOPATHOLOGY LABORATORY at 1457 CDT Clinical History R/O SCC, Nazario's BCC, LPLK. 2 2:57 PM CDT DERMATOPATHOLOGY LABORATORY Gross Description Specimen A: Received is one formalin filled container labeled with the patient's name and designated left medial end of clavicle. The specimen consists of a shave biopsy measuring [id number]. Jar 0. 2 2:57 PM CDT DERMATOPATHOLOGY LABORATORY Microscopic Description Specimen A. SKIN, left medial end of clavicle: The epidermis is mildly acanthotic. There is a lichenoid infiltrate with vacuolar changes of basilar keratinocytes and scattered necrotic keratinocytes. 2 2:57 PM CDT DERMATOPATHOLOGY LABORATORY Disclaimer An external and internal positive and negative controls are appropriate for the histochemical, immunohistochemical and immunofluorescence stain(s) in this case (if any), except where stated explicitly. The performance characteristics of the stain(s) cited in this report were developed and its performance characteristic determined by the Dermatopathology Laboratory at [facility], directed by Dr. Francesca Muse. These tests need not be, and therefore are not, approved by the [place] Food and Drug Administration. The tests are used for clinical purposes. Billing Codes Specimen Charges Stain Charges 16407 1 2 2:57 PM CDT DERMATOPATHOLOGY LABORATORY Embedded Images 2 2:57 PM CDT DERMATOPATHOLOGY LABORATORY Pathology/Cytolog y TISSUE SPECIMEN FROM SKIN / Unknown 07/02/2021 07/03/2021 12:51 PM CDT Rubén Miranda MD LAB - PATHOLOGY/CYTOLOGY ORD ERABLES Final Result DERMATOPATHOLOGY LABORATORY [facility] - Department of Dermatology [address], [address] [phone] documented in this encounter Visit Diagnoses Not on filedocumented in this encounter
--- OUTSIDE RECORDS SUMMARY | 2024-12-06 08:30 | XMS_ITS | Clinical Summary ---
Author Organization [facility] [address] Address [address] [place] [address] Care Team Providers Care Vp Rheumatology Name Role Phone Elan Harvey DO Primary Care Provider [phone] Allergies Active Allergy Reactions Criticality Noted Date Comments Ciprofloxacin Fever,Rash Medium 09/23/2013 Metronidazole Fever,Rash Medium 09/23/2013 Nitroglycerin Other (See comments) Low 08/28/2018 Lowers pulse Lowers diastolic pressure to much Lowers pulse Medications losartan-hydrochl orothiazide (HYZAAR) 100-25 mg per tablet Take 1 tablet by mouth Active amLODIPine (NORVASC) 5 mg tablet 3 9 Active omega 9-bqc-bzq-fish oil (FISH OIL) 360-1,200 mg capsule,delayed release(DR/EC) Take by mouth A ctive sildenafil (VIAGRA) 50 mg tablet TAKE 1 TO 2 TABLETS BY MOUTH DAILY NEEDED 3 9 Active metoprolol XL (TOPROL-XL) 50 mg extended release tablet 50 MG ORALLY DAILY 3 Active dicyclomine (BENTYL) 10 mg capsule Take 1 capsule (10 mg total) by mouth 3 (three) times a day 0 Active aspirin 81 mg enteric coated tablet Take 1 tablet (81 mg total) by mouth daily Active Lactobac no.41/Bifidobact no.7 (PROBIOTIC-10 ORAL) Take by mouth Active omega-3 fatty acids 100 mg tablet,chewable Take by mouth Active multivit with min-folic acid (Adult One Daily Multivitamin) 0.4 mg tablet Take 1 tablet by mouth 3 (three) times a day with meals Active pediatric multivitamin tablet,chewable Take 1 tablet by mouth daily Active fluorouraciL (EFUDEX) 5 % cream APPLY CREAM TOPICALLY TWICE DAILY TO TOP OF FOREARMS FOR 2 WEEKS, STOP USING FOR 2 WEEKS, AND THEN REPEAT FOR 2 WEEKS DIRECTED 3 Active Active Problems Problem Noted Date Diagnosed Date Abdominal distension 01/18/2019 08/21/2022 Change in bowel habits 01/18/2019 3 Generalized abdominal pain 01/18/201908/21 Hypertension 07/28/2018 08/21/2022 Routine adult health maintenance 07/28/2018 08/21/2022 Surgical History Surgery Date Site/Laterality Comments CHOLECYSTECTOMY SHOULDER ARTHROSCOPY TONSILLECTOMY Medical History Medical History Date Comments Hypertension Hiatal hernia Family History Medical History Relation Name Comments Heart disease Other Hypertension Other Stroke Other Relation Name Status Comments Other Social History Tobacco Use Types Packs/Day Years Used Date Smoking Tobacco: Never Smokeless Tobacco: Never Alcohol Use Standard Drinks/Week Comments Yes 0 (1 standard drink = 0.6 oz pur e alcohol) daily Personal Safety Answer Date Recorded Getting School Help Needed Not on file 06/12 Sex and Gender Information Value Date Recorded Sex Assigned at Not on file 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 [employer] Gender Identity Not on file Sexual Orientation Not on file Obstetrics History Last Filed Vital Signs Vital Sign Reading Time Taken Comments Blood Pressure 191/84 08/21/2022 11:48 AM CDT Pulse 70 08/21/2022 11:48 AM CDT Temperature 36.7 C (98.1 F) 08/28/2018 5:21 PM CDT Respiratory Rate 12 08/28/2018 7:15 PM CDT Oxygen Saturation 96% 08/28/2018 7:15 PM CDT Inhaled Oxygen Concentration - - Weight 108 kg (238 lb) 08/21/2022 11:48 AM CDT Height 175.3 cm (5' 9) 08/21/2022 11:48 AM CDT Body Mass Index 35.15 08/21/2022 11:48 AM CDT Plan of Treatment Health Maintenance Due Date Last Done Comments Depression Screening 1945 Fall Risk Assessment 1945 Hepatitis C Screening 1945 DTaP/Tdap/Td Vaccine (1 - Tdap) 1958 Hepatitis B Screening 1965 Well Visit 65+ 02/28/2012 Covid-19 Vaccine (3 - Pfizer risk series) 07/14/2020 06/16/2020, 05/22/2020 Influenza Vaccine (#1) 2024 0, 12/13/2018, 12/12/2018, Additional history exists Pneumococcal vaccine 65+ Completed 017, 01/15/2017, 01/04/2016 Zoster Vaccine Completed 09/29/2018, 06/29/2018 Insurance MEDICARE [employer] [facility] ACCESS Member Subscriber Plan / Payer (Ef fective 2017-Present) Name:Francisco Rashid Relation to Subscriber:Self Name:Francisco Rashid Payer ID:[id number] (NAIC) Type:[facility] Address: [address] [place] [id number] MEDICARE Care Teams Vp Rheumatology Relationship Specialty Start Date End Date Elan Harvey DO PCP - General Internal Medicine 10/22/16
--- OUTSIDE RECORDS SUMMARY | 2024-12-06 08:30 | XMS_ITS | Encounter Summary ---
Author Organization [facility] Address [address] [place] [address] Phone Care Team Providers Care Rn Telephone Triage Name Role Phone Rom Garza MD Primary Care Provider [phone] Carlos Jj MD Unavailable Unavaila ble Reason for Visit * Reason Comments Medication Refill Encounter Details Date Type Department Care Team ([facility] Contact Info) Description 01/29/2020 Refill [facility] [address] [place], [place] [id number] Rom Garza MD [address] [place] [address] Medication Refill Social History Tobacco Use Types Packs/Day Years Used Date Smoking Tobacco: Never Smokeless Tobacco: Never Alcohol Use Standard Drinks/Week Comments Not Currently 0 (1 standard drink = 0.6 oz pur e alcohol) PHQ-2 Answer Date Recorded PHQ-2 Score 0 04/07/2019 Sexually Active Control Partners Comments Not Currently Sex and Gender Information Value Date Recorded Sex Assigned at Not on file Legal Sex Male 3:20 AM CDT Gender Identity Not on file Sexual Orientation Not on file documented as of this encounter Miscellaneous Notes * Telephone Encounter - Kaylee Raya RN - 01/30/2020 1:11 PM CST Sending for review per nursing clinical judgement. Passed protocol however, pt has not been seen in office since March. Pt has requested a year supply. 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
--- OUTSIDE RECORDS SUMMARY | 2024-12-06 08:30 | XMS_ITS | Clinical Summary ---
Author Organization [facility] Address [address] [place] [address] Care Team Providers Care Blood Collector Name Role Phone Unavailable Primary Care Provider Unavailabl e Source Comments [facility],non-owned Affiliates and Associated Physician Practices is amultiple site organization consisting of ambulatory clinics and hospital sitesin [place], [place], [place] and [place]. This disclosure is being madepursuant to the Care Everywhere program and may not contain all information available regarding this patient. Last updated 17.[facility] Allergies Active Allergy Reactions Criticality Noted Date Comments Ciprofloxacin Fever 09/23/2013 Metronidazole Rash Low 09/23/2013 Medications * Be aware that medications may not be up to date on this document. Alwaysverify current medications with the patient. losartan-hydroch lorothiazide (HYZAAR) 100-25 MG tablet Take 1 Tab by mouth once daily. Active aspirin EC (ECOTRIN) 81 MG tablet Take 81 mg by mouth once daily. Active multivitamin daily (THERAGRAN) tablet Take 1 Tab by mouth daily with food. Active [place]-3 Fatty Acids (FISH OIL) 1200 MG CAPS Take by mouth. Active Probiotic Product (PROBIOTIC DAILY PO) Take by mouth. Active Social History Tobacco Use Types Packs/Day Years Used Date Smoking Tobacco: Never Alcohol Use Standard Drinks/Week Comments Yes 11.7 (1 standard drink = 0.6 oz pure alcohol) Sex and Gender Information Value Date Recorded Sex Assigned at Not on file Legal Sex Male 10:23 AM CDT Gender Identity Not on file Sexual Orientation Not on file Plan of Treatment Health Maintenance Due Date Last Done Comments HEPATITIS C SCREENING 02/22/1965 DTAP/TDAP/TD VACCINES (1 - Tdap) 1966 PNEUMOCOCCAL VACCINE 50+ (1 of 1 - PCV) 1997 ZOSTER VACCINE (1 of 2) 1997 Respiratory Syncytial Virus (RSV) Vaccine Pt: or over 60 yrs (1 - 1-dose 75+ series) 2022 DEPRESSION SCREENING 03/30/2024 COVID-19 VACCINE (1 - 2023-2 5 season) 2024 INFLUENZA VACCINE (#1) 2024 HEPATITIS B VACCINE Aged Out No longe r eligible based on patient's age to complete this topic HIB VACCINE Aged Out No longer eligi ble based on patient's age to complete this topic HPV VACCINE Aged Out No longer eligi ble based on patient's age to complete this topic MENINGOCOCCAL (Group B) VACC INE SHARED DECISION-MAKING Aged Out No longer eligibl e based on patient's age to complete this topic MENINGOCOCCAL GROUPS A/C/Y/W VACCINE Aged Out No longer eligible b ased on patient's age to complete this topic Insurance [address] [facility] Address: [facility] [id number] [place] [id number] MEDICARE AETNA [facility] Address: [facility] [id number] [place] [address]
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
== END 2024-12-06 08:05 | disposition home or self-care (01) ==
LOC: ANHIMG 08:06
PROVIDERS: PCP Internal Medicine; Visit Provider Internal Medicine Gastroenterology
DX: K92.89 Other specified diseases of the digestive system (principal); K58.0 Irritable bowel syndrome with diarrhea
CPT/HCPCS: 78264; A9541

== ENCOUNTER 2024-12-28 08:45 | Outpatient (CLI) | payer MEDICARE, OTHER, SELFPAY ==
--- NOTE | ~2024-12-28 | XR_ITS ---
EXAMINATION: XR small bowel follow through DATE: 12/28/2024 11:35 INDICATION: Other specified disease of the digestive system. TECHNIQUE: Career Services Coordinator radiograph(s) of the abdomen was/were obtained. Oral contrast was administered, and sequential radiographs of the abdomen were obtained until oral contrast was noted to be in the proximal colon. Spot fluoroscopic images of the small bowel were obtained. Total of 80 fluoroscopic images and 11 overhead radiographs were obtained. Fluoroscopy exposure time was 1.4 minutes. Total DAP was 208 Gycm^2. COMPARISON: CT dated 05/19/2024 FINDINGS: Career Services Coordinator images demonstrates cholecystectomy clips in right upper quadrant. Multiple small hepatic and splenic calcifications consistent with old granulomatous disease. Several large phleboliths bilaterally in the pelvis. Lung bases are clear with no pleural effusion. Normal bowel gas pattern. Transit time from the stomach to proximal colon was approximately 90 minutes. There is normal caliber and mucosal fold pattern throughout the small bowel. There are couple scattered small bowel diverticula. Terminal ileum is normal. No tethering or abnormal mass effect observed upon the small bowel with real-time fluoroscopy. IMPRESSION: 1. Multiple scattered small bowel diverticula. Otherwise unremarkable small bowel follow-through study with normal small bowel transit time of 90 minutes. Reviewed, dictated and finalized at location A. IMPRESSION: 1. Multiple scattered small bowel diverticula. Otherwise unremarkable small bow el follow-through study with normal small bowel transit time of 90 minutes.
--- OUTSIDE RECORDS SUMMARY | 2024-12-28 09:03 | XMS_ITS | Encounter Summary ---
Author Organization [facility] Address [address] [place] [address] Phone Care Team Providers Care Hydro Generation Manager Name Role Phone Rom Garza MD Primary Care Provider Carlos Jj MD Unavailable Unavaila ble Reason for Visit * Reason Comments Medication Refill Encounter Details Date Type Department Care Team ([facility] Contact Info) Description 01/29/2020 Refill [facility] [address] [place], [place] [id number] Rom Garza MD [address] [place] [address] Medication Refill Social History Tobacco [...] March. Pt has requested a year supply. CIATE PROFESSOR OF LITERACY documented in this encounter Plan of Treatment Not on file documented as of this encounter Visit Diagnoses Diagnosis Essential hypertension Unspecified essential hypertension documented in this encounter Additional Health Concerns Assessment Noted Time PHQ-9 Depression Total Score: 0 04/07/19 20 10:00 AM ASSOCIATE PROFESSOR OF LITERACY documented as of this encounter Care Teams Hydro Generation Manager Relationship Specialty Start Date End Date Rom Garza MD PCP - General Family Medicine 07/28/18 07/20/23 Carlos Jj MD Gastroenterology 09/23/18 documented as of this encounter
--- OUTSIDE RECORDS SUMMARY | 2024-12-28 09:03 | XMS_ITS | Clinical Summary ---
Author Organization [facility] Address [address], [facility] [address] [place] [address] Phone Care Team Providers Care Plasterer Apprentice Name Role Phone Carlos Jj MD Unavailable Unavaila ble Allergies Active Allergy Reactions Criticality Noted Date Comments Ciprofloxacin Rash Medium 09/23/2013 Metronidazole Rash Medium 09/23/2013 Nitroglycerin Other (see Comments) Low 08/28/2018 Lowers diastolic pressure to much Lowers pulse Medications [place]-3 Fatty Acids (FISH OIL) 1200 MG Capsule [...] Lnp-s, Pf, 3 0 Mcg/0.3 Ml Dose ([employer]) 06/16/2020,05/22/2020 Influenza Vaccine greater than 3 yrs [...] Comments Blood Pressure 112/68 04/07/2019 10:13 AM UNION LABORER Pulse 62 04/07/2019 10:13 AM UNION LABORER Temperature 36.3 C (97.4 F) 04/07/2019 10:13 AM UNION LABORER Respiratory Rate 16 04/07/2019 10:13 AM UNION LABORER Oxygen Saturation 96% 04/07/2019 10:13 AM UNION LABORER Inhaled Oxygen Concentration - - Weight 92.2 kg (203 lb 3.2 oz) 04/07/2019 10:13 AM UNION LABORER Height 175.3 cm (5' 9) 04/07/2019 10:13 AM UNION LABORER Body Mass Index 30.01 04/07/2019 10:13 AM UNION LABORER Plan of Treatment Health Maintenance Due Date [...] Most Recently Relevant to Health Maintenance Insurance [facility] Care Teams Plasterer Apprentice Relationship Specialty Start Date End Date Carlos Jj MD Gastroenterology 09/23/18
--- OUTSIDE RECORDS SUMMARY | 2024-12-28 09:03 | XMS_ITS | Encounter Summary ---
Author Organization [facility] Address [address] [facility] [place] [address] Care Team Providers Care Sample Taker Operator Name Role Phone Unavailable Primary Care Provider Unavailabl e Encounter Details Date Type Department Care Team (Late st Contact Info) Description 07/03/2021 Lab Requisition [facility] D[facility] Lab [address] [facility] [place] [address] Rubén Miranda MD [address] [place] [address] Social History Tobacco Use Types [...] AM CDT) Case Report Dermatopathology Report Case: [id number] Authorizing Provider: Rubén Miranda MD Collected: 07/02/2021 12:00 AM Ordering Location: [facility] Received: 07/03/2021 12:51 PM [...] specimen consists of a shave biopsy measuring [id number]. Jar 0. 2 2:57 PM CDT DERMATOPATHOLOGY [...] characteristic determined by the Dermatopathology Laboratory at [facility], directed by Dr. Francesca Muse. These tests need not be, and therefore are not, approved by the [place] Food and Drug Administration. The tests are used for clinical purposes. Billing Codes Specimen Charges Stain Charges 84138 1 2 2:57 PM CDT DERMATOPATHOLOGY LABORATORY Embedded Images 2 2:57 PM CDT DERMATOPATHOLOGY LABORATORY Pathology/Cytolog y TISSUE SPECIMEN FROM SKIN / Unknown 07/02/2021 07/03/2021 12:51 PM CDT Rubén Miranda MD LAB - PATHOLOGY/CYTOLOGY ORD ERABLES Final Result DERMATOPATHOLOGY LABORATORY [facility] - Department of Dermatology [address], [address] [phone] documented in this encounter Visit Diagnoses Not on filedocumented in this encounter
--- OUTSIDE RECORDS SUMMARY | 2024-12-28 09:03 | XMS_ITS | Clinical Summary ---
Author Organization [facility] Address [address] [facility] [place] [address] Care Team Providers Care Cuff Setter Lockstitch Name Role Phone Unavailable Primary Care Provider Unavailabl e Source Comments [facility],non-owned Affiliates and Associated Physician Practices is amultiple site organization consisting of ambulatory clinics and hospital sitesin [place], [place], [place] and [place]. This disclosure is being madepursuant to the Care Everywhere program and may not contain all information available regarding this patient. Last updated 17.[facility] Allergies Active Allergy Reactions Criticality Noted Date [...] Tab by mouth daily with food. Active [place]-3 Fatty Acids (FISH OIL) 1200 MG CAPS [...] age to complete this topic Insurance [address] MEDICARE AETNA
--- OUTSIDE RECORDS SUMMARY | 2024-12-28 09:03 | XMS_ITS | Clinical Summary ---
Author Organization [facility] [address] Address [address] [place] [address] Care Team Providers Care Automotive Service Technician Name Role Phone Elan Harvey DO Primary Care Provider [phone] Allergies Active Allergy Reactions Criticality Noted Date Comments Ciprofloxacin Fever,Rash Medium 09/23/2013 Metronidazole Fever,Rash Medium 09/23/2013 Nitroglycerin Other (See comments) Low 08/28/2018 Lowers pulse Lowers diastolic pressure to much Lowers pulse Medications losartan-hydrochl orothiazide (HYZAAR) 100-25 mg per tablet Take 1 tablet by mouth Active amLODIPine (NORVASC) 5 mg tablet 3 9 Active omega 7-xmk-lez-fish oil (FISH OIL) 360-1,200 mg capsule,delayed release(DR/EC) [...] on file Legal Sex Male 4:00 AM NURSERY NURSE Gender Identity Not on file Sexual Orientation [...] Vaccine Completed 09/29/2018, 06/29/2018 Insurance MEDICARE AETNA [facility] Member Subscriber Plan / Payer (Ef fective 2017-Present) Name:Francisco Rashid Relation to Subscriber:Self Name:Francisco Rashid Payer ID:[id number] (NAIC) Type:[facility] Address: [id number] [place] [id number] MEDICARE Care Teams Automotive Service Technician Relationship Specialty Start Date End Date Elan Harvey DO PCP - General Internal Medicine 10/22/16
== END 2024-12-28 08:46 | disposition home or self-care (01) ==
PROVIDERS: PCP Internal Medicine; Visit Provider Internal Medicine Gastroenterology
DX: K92.89 Other specified diseases of the digestive system (principal); K58.0 Irritable bowel syndrome with diarrhea; N32.3 Diverticulum of bladder
CPT/HCPCS: 74250